=== PATIENT | female | born 1965 | race Two or more races ===

== ENCOUNTER 2019-05-29 10:26 | Emergency (ER) | payer SELFPAY ==
[~2019-05-29] VITALS: Ht 167.6 cm; Wt 79.4 kg
[2019-05-29 10:26] VITALS: BP 168/90
[~2019-05-29 10:26] MED LIST: NKM
[2019-05-29] MEDS ORDERED: TAMIFLU75 MG ORAL (11:05)
[2019-05-29] MEDS ORDERED: TYLENOL EXTRA500 MG ORAL (11:05)
[2019-05-29 11:08] VITALS: BP 157/88
--- NOTE | 2019-05-29 12:42 | Emergency Room Report ---
History of Present Illness General Chief Complaint: Flu Like Symptoms Source: Patient Present Illness HPI 53-year-old female presents to the ED with cough, congestion and chills for 2 weeks. Afebrile in triage. Cough is productive with yellowish phlegm. Also states has been having some diarrhea. Nausea or vomiting. Denies recent travel. States that her boss may have coronavirus. No other aggravating relieving factors. Denies any other associated symptoms COVID-19 risk:Contact w/high r: Yes COVID-19 risk:Travel to affect: No Has patient experienced jackson: Yes Coronavirus symptoms experienc: Fever (T>100.4F or >38C), Shortness of Breath, Cough Allergies: Coded Allergies: No Known Allergies (Unverified , 09/24/15) Patient History Past Medical History: HTN Past Surgical History: none Pertinent Family History: none Social History: Denies: smoking, alcohol use, drug use Now: No Immunizations: UTD Reviewed Nursing Documentation: PMH: Agreed; PSxH: Agreed Nursing Documentation-PMH Hx Hypertension: Yes Review of Systems All Other Systems: negative except mentioned in HPI Physical Exam Vital Signs Date Time Temp Pulse Resp B/P (MAP) Pulse Ox O2 Delivery O2 Flow Rate FiO2 05/29/19 10:24 98.8 78 16 174/95 (121) 97 Room Air Sp02 EP Interpretation: reviewed, normal General Appearance: no apparent distress, alert, GCS 15, non-toxic Head: normocephalic, atraumatic Eyes: bilateral eye normal inspection, bilateral eye PERRL ENT: hearing grossly normal, normal pharynx, no angioedema, normal voice Neck: full range of motion, supple/symm/no masses Respiratory: chest non-tender, lungs clear, normal breath sounds, speaking full sentences Cardiovascular #1: regular rate, rhythm, no edema Cardiovascular #2: 2+ carotid (R), 2+ carotid (L), 2+ radial (R), 2+ radial (L) , 2+ dorsalis pedis (R), 2+ dorsalis pedis (L) Gastrointestinal: normal bowel sounds, non tender, soft, non-distended, no guarding, no rebound Rectal: deferred Genitourinary: normal inspection, no CVA tenderness Musculoskeletal: back normal, normal range of motion, gait/station normal, non- tender Neurologic: alert, motor strength/tone normal, oriented x3, sensory intact, responsive, speech normal Psychiatric: judgement/insight normal, memory normal, mood/affect normal, no suicidal/homicidal ideation Reflexes: 3+ bicep (R), 3+ bicep (L), 3+ tricep (R), 3+ tricep (L), 3+ knee (R) , 3+ knee (L) Lymphatic: no adenopathy Medical Decision Making Diagnostic Impression: Primary Impression: Influenza-like symptoms ER Course Hospital Course 53-year-old F presents to ED complaining of fever + bodyaches + cough + diarrhea Differential diagnoses include: URI, pharyngitis, otitis media, influenza Clinical course Patient placed in isolation tent. I wore full protective equipment.. After initial history physical exam reveals a female in no acute distress. Bilateral TM unremarkable, no pharyngeal erythema. Lungs clear. No CVA tenderness. Discussed findings with patient and . Vitals stable. Afebrile, nontoxic -appearing. Considerations include influenza and coronavirus. Patient does have exposure history concerning for coronavirus. Will discharge with Tamiflu. Recommend self-isolation for patient and has been for 14 days. Safe for discharge for close outpatient follow-up. I will provide referrals Diagnosis - influenza-like symptoms Stable and discharged home with prescriptions for tamiflu, tylenol. drink plenty of fluids. self-isolation for 14 days. Instructed to followup with PMD. Return to ED if symptoms recur or worsen Last Vital Signs Date Time Temp Pulse Resp B/P (MAP) Pulse Ox O2 Delivery O2 Flow Rate FiO2 05/29/19 11:08 98.6 79 15 157/88 99 Room Air Status: improved Disposition: HOME, SELF-CARE Condition: Stable Scripts Acetaminophen* (TYLENOL EXTRA STRENGTH*) 500 Mg Tablet 500 MG ORAL Q8H PRN for Prn Headache/Temp > 101, #30 TAB 0 Refills Prov: Andrew Perry MD 05/29/19 Oseltamivir Phosphate (Tamiflu) 75 Mg Capsule 75 MG ORAL TWICE A DAY for 5 Days, CAP Prov: Andrew Perry MD 05/29/19 Referrals: [facility] Patient Instructions: Upper Respiratory Infection, Adult, [id number] Additional Instructions: you may have coronavirus. i'll prescribe tamiflu for possible flu. stay home and quarantine for 14 days. your close contacts need to isolate for 14 days. Andrew Perry MD May 29, 2019 12:42
== END 2019-05-29 11:08 | disposition home or self-care (01) ==
LOC: EDBD 10:26 → EMR 11:00
DX: J11.1 Influenza due to unidentified influenza virus with other respiratory manifestations (principal); Z03.818 Encounter for observation for suspected exposure to other biological agents ruled out; I10 Essential (primary) hypertension
CPT/HCPCS: 99282